=== PATIENT | male | born 1940 | race Caucasian/White ===

== ENCOUNTER 2017-06-06 09:57 | Emergency (ER) | payer MEDICARE ==
[2017-06-06 10:05] VITALS: BMI 25.6
[2017-06-06 10:06] VITALS: TEMP 98.1; O2SAT 98
[2017-06-06] MEDS ORDERED: Sodium Chloride 0.9% 500 ML IV STA ×2 (10:31→12:28)
--- NOTE | 2017-06-06 10:36 | ED PDOC ---
Arrival/HPI - General Chief Complaint: Back Pain Time Seen by Provider: 06/06/17 10:14 Historian: Patient - History of Present Illness Narrative History of Present Illness (Text): 06/06/17 10:33 76 yo male come in for evaluation of R>L flank pain for past 4 days. Pt reports , pain is constant, aching, B/L flank area radiating to RUQ and epigastric area. Pain is worse with movement and standing. Pt had 4 episodes of watery diarrhea yesterday. Otherwise, pt denies change in appetite, fever, chills, headache, dizziness, CP, SOB, dyspnea, diaphoresis, palpitation, N/V, hematemesis, melena, hematoschezia, UTI sx, hematuria. Pt admits, had similar pain in past, " when was diagnosed with gallbladder stones and it was removed". At present time, pt is awake, not n any apparent distress. Past Medical History - Provider Review Nursing Documentation Reviewed: Yes - Travel History Have you recently traveled outside [place] w/in the past 3 mons?: No - Patient History Narrative Patient History: HTN, Colon CA s/p resection, BPH, L-spine herniated disc s/p laminectomy, chronic neck pain ( cervilagia), cholecystectomy - Infectious Disease Hx of Infectious Diseases: None - Tetanus Immunization Tetanus Immunization: Unknown - Cardiac Hx Hypertension: Yes - Neurological Hx Paralysis: No - Hematological/Oncological Hx Blood Transfusions: No Hx Blood Transfusion Reaction: No - Musculoskeletal/Rheumatological Hx Musculoskeletal Disorders: Yes - Psychiatric Hx Emotional Abuse: No Hx Physical Abuse: No Hx Substance Use: No - Surgical History Hx Cholecystectomy: Yes Other/Comment: bilat inguinal hernia. colon. lower back surgery - Anesthesia Hx Anesthesia Reactions: No Hx Malignant Hyperthermia: No - Suicidal Assessment Feels Threatened In Home Enviroment: No Family/Social History - Physician Review Nursing Documentation Reviewed: Yes Family/Social History: Other (not significant) Smoking Status: Never Smoked Hx Alcohol Use: No Hx Substance Use: No Hx Substance Use Treatment: No Allergies/Home Meds Allergies/Adverse Reactions: Allergies No Known Allergies Allergy (Verified 06/06/17 10:20) Home Medications: Home Meds Medication Instructions Recorded Confirmed Amlodipine Besylate/Benazepr 1 cap PO QAM 08/28/12 06/06/17 [Lotrel 10 mg-20 mg] Finasteride 5 mg PO DAILY 02/25/15 06/06/17 Melatonin [Melatonin] 5 mg PO HS 06/06/17 06/06/17 Tamsulosin [Flomax] 0.4 mg PO DAILY 06/06/17 06/06/17 Tizanidine HCl [Zanaflex] 4 mg PO HS 06/06/17 06/06/17 Review of Systems - Physician Review All systems were reviewed & negative as marked: Yes - Review of Systems Constitutional: Normal Eyes: Normal ENT: Normal Respiratory: Normal. absent: SOB, Cough Cardiovascular: Normal. absent: Chest Pain, Palpitations, Orthopnea Gastrointestinal: Diarrhea. absent: Vomiting, Appetite Changes, Hematochezia, Hematemesis, Food Intolerance Genitourinary Male: Normal. absent: Dysuria, Frequency Musculoskeletal: Back Pain Skin: Normal. absent: Rash Neurological: Normal. absent: Dizziness, Focal Weakness Endocrine: Normal Hemo/Lymphatic: Normal Psychiatric: Normal Physical Exam Vital Signs Reviewed: Yes Vital Signs Temp Pulse Resp BP Pulse Ox 06/06/17 12:48 74 18 121/78 98 06/06/17 11:55 79 18 118/75 98 06/06/17 09:58 98.1 F 80 20 120/74 98 Temperature: Afebrile Blood Pressure: Normal Pulse: Regular Respiratory Rate: Normal Appearance: Positive for: Well-Appearing, Non-Toxic, Comfortable Pain Distress: Mild Mental Status: Positive for: Alert and Oriented X 3 - Systems Exam Head: Present: Normocephalic Conjunctiva: Present: Normal Mouth: Present: Moist Mucous Membranes. No: Drooling Pharnyx: No: ERYTHEMA, EXUDATE, TONSILS ENLARGED Neck: Present: Normal Range of Motion, Trachea Midline, Other (Supple, no carotid bruit). No: JVD Respiratory/Chest: Present: Clear to Auscultation, Good Air Exchange. No: Respiratory Distress, Accessory Muscle Use, Wheezes, Decreased Breath Sounds, Rales Cardiovascular: Present: Regular Rate and Rhythm, Normal S1, S2. No: Murmurs Abdomen: Present: Tenderness (mild RUQ and epigastric), Normal Bowel Sounds, Other (well healed vertical scar just above umbilicus). No: Distention, Peritoneal Signs, Rebound, Guarding, McBurney's Point Tender, Hernias Back: Present: Other (mild R>L flank tenderness). No: CVA Tenderness, Midline Tenderness Upper Extremity: Present: Normal Inspection. No: Cyanosis, Edema Lower Extremity: Present: Normal ROM. No: Edema, CALF TENDERNESS, Swelling, Deformity Neurological: Present: GCS=15, Speech Normal, Motor Func Grossly Intact, Normal Sensory Function, Norm Deep Tendon Reflexes Skin: Present: Warm, Dry, Normal Color. No: Rashes Psychiatric: Present: Alert, Oriented x 3, Normal Insight, Normal Concentration Medical Decision Making ED Course and Treatment: 06/06/17 13:02 Pt was OBS in ED for 3 hours and reports moderate improvement in sx. On re-evaluation, pt is afebrile, hemodynamiclay stable. non-toxic. TOlerate Po well in ED. ENT: jamal cute finidngs Neck: Supple, no JVD, no carotid bruits Lungs: CTA B/L, BS equal B/L> CVS: (+)S1S2, reg. Abd: benign, (-) guarding, (-) rebound, (-) localized tenderness. Back: (-) CVA tenderness. No peripheral edema. Case discussed with ED attending , diagnostics, imaging results review, no further testing recommend. Discharge with outpt F/u recommend at this time. results were review and discussed with pt. Pt has clinical findings c/w B/l R>L flank tenderness, UTI . Pt advised and ref. to f/u with PMD, urology in 1-2 days for re-evaluation. Return t o ED if any worsening or new changes. - Lab Interpretations Lab Results: 06/06/17 10:34 06/06/17 10:34 Lab Results 06/06/17 10:34: Sodium 139, Potassium 4.1, Chloride 106, Carbon Dioxide 24, Anion Gap 13, BUN 16, Creatinine 1.1, Est GFR ( Amer) > 60, Est GFR (Non- Af Amer) > 60, Random Glucose 112 H, Calcium 8.9, Total Bilirubin 0.5, AST 21, ALT 20, Alkaline Phosphatase 54, Total Protein 6.9, Albumin 3.7, Globulin 3.2, Albumin/Globulin Ratio 1.2 06/06/17 10:34: Urine Color Yellow, Urine Appearance Clear, Urine pH 6.0, Ur Specific [place] 1.025, Urine Protein Negative, Urine Glucose (UA) Negative, Urine Ketones Negative, Urine Blood Negative, Urine Nitrate Negative, Urine Bilirubin Negative, Urine Urobilinogen 0.2, Ur Leukocyte Esterase Small H, Urine RBC Negative, Urine WBC 5 - 10, Ur Epithelial Cells 0 - 2, Urine Bacteria Trace 06/06/17 10:34: WBC 5.6 D, RBC 4.56, Hgb 15.1, Hct 44.6, MCV 97.8, MCH 33.1, MCHC 33.9, RDW 12.3, Plt Count 163, MPV 9.8, Gran % 53.1, Lymph % (Auto) 30.0, [place] % (Auto) 10.6 H, Eos % (Auto) 4.9, Baso % (Auto) 1.4, Gran # 2.95, Lymph # 1.7, [place]ley # 0.6, Eos # 0.3, Baso # 0.08 - RAD Interpretation Radiology Orders: 06/06/17 10:31 ABD & PELVIS W/O PO OR IV CONT [CT] Stat Accession No. : [id number] Patient Name / ID : LACEY ARRIAZA / [id number] Exam Date : 06/06/2017 11:09:29 ( Approved ) Study Comment : Sex / Age : M / 76Y Creator : Van Contreras MD Dictator : Van Contreras MD Braille Typist : Digital Imaging Technician : Van Contreras MD Approver2 : Report Date : 06/06/2017 11:51:40 My Comment : PROCEDURE: CT Abdomen and Pelvis without intravenous contrast HISTORY: R>L flank pain COMPARISON: 01/11/2017 TECHNIQUE: Without contrast.. Contrast Dose: Radiation dose: Total exam DLP = 402 mGy-cm. This CT exam was performed using one or more of the following dose reduction techniques: Automated exposure control, adjustment of the mA and/or kV according to patient size, and/or use of iterative reconstruction technique. FINDINGS: LOWER THORAX: Unremarkable. LIVER: Unremarkable. No gross lesion or ductal dilatation. GALLBLADDER AND BILE DUCTS: Gallbladder removed PANCREAS: Unremarkable. No gross lesion or ductal dilatation. SPLEEN: Unremarkable. ADRENALS: Unremarkable. No mass. KIDNEYS AND URETERS: Simple cysts are seen in the left kidney. There is no evidence of hydronephrosis. There are no renal or ureteral stones identified. VASCULATURE: Unremarkable. No aortic aneurysm. BOWEL: Unremarkable. No obstruction. No gross mural thickening. APPENDIX: Unremarkable. Normal appendix. PERITONEUM: Unremarkable. No free fluid. No free air. LYMPH NODES: Unremarkable. No enlarged lymph nodes. BLADDER: Unremarkable. REPRODUCTIVE: There is mild enlargement of the prostate. Calcifications are seen within the prostate BONES: No acute fracture. OTHER FINDINGS: None. IMPRESSION: No evidence of renal or ureteral stone - Medication Orders Current Medication Orders: Discontinued Medications Famotidine (Pepcid) 20 mg IVP STAT STA Stop: 06/06/17 10:33 Last Admin: 06/06/17 10:44 Dose: 20 mg Sodium Chloride (Sodium Chloride 0.9%) 500 mls @ 1,000 mls/hr IV .Q30M STA Stop: 06/06/17 11:00 Last Admin: 06/06/17 10:41 Dose: 1,000 mls/hr Ceftriaxone Sodium (Rocephin 1 Gram Ivpb) 1 gm in 100 mls @ 200 mls/hr IVPB STAT STA PRN Reason: Protocol Stop: 06/06/17 12:56 Last Admin: 06/06/17 12:35 Dose: 200 mls/hr Sodium Chloride (Sodium Chloride 0.9%) 500 mls @ 999 mls/hr IV .Q31M STA Stop: 06/06/17 12:58 Last Admin: 06/06/17 12:29 Dose: 999 mls/hr Ketorolac Tromethamine (Toradol) 30 mg IVP STAT STA Stop: 06/06/17 10:32 Last Admin: 06/06/17 10:43 Dose: 30 mg Oxycodone/Acetaminophen (Percocet 5/325 Mg Tab) 1 tab PO STAT STA Stop: 06/06/17 12:43 Last Admin: 06/06/17 12:50 Dose: 1 tab Disposition/Present on Arrival - Present on Arrival Any Indicators Present on Arrival: No History of DVT/PE: No History of Uncontrolled Diabetes: No Urinary Catheter: No History of Decub. Ulcer: No History Surgical Site Infection Following: None - Disposition Have Diagnosis and Disposition been Completed?: Yes Diagnosis: Flank pain, UTI (urinary tract infection) Disposition: HOME/ ROUTINE Disposition Time: 13:42 Patient Plan: Discharge Condition: STABLE Discharge Instructions (ExitCare): Flank Pain (ED), Urinary Tract Infection in Men (ED) Print Language: WELSH Additional Instructions: ENCOURAGE FLUIDS TAKE MEDICATION PRESCRIBED FOLLOW UP WITH PMD IN 1-2 DAYS FOR RE-EVALUATION. RETURN TO ED IF ANY WORSENING OR NEW CHANGES. Prescriptions: Cefpodoxime [Vantin] 400 mg PO BID #28 tab Methocarbamol [Robaxin] 500 mg PO TID #20 tab traMADol [Ultram] 50 mg PO TID #7 tab Referrals: Narendra Alva MD [Primary Care Provider] - Follow up with primary
[2017-06-06 10:47] LABS: BASO # 0.08 K/mm3 (0.0-2.0); BASO % 1.4 % (0.0-3.0); EOS # 0.3 (0.0-0.7); EOS % 4.9 % (1.5-5.0); GRAN # 2.95 (1.4-6.5); GRAN % 53.1 % (50.0-68.0); HEMOGLOBIN 15.1 gm/dL (14.0-18.0); LYMPH # 1.7 (1.2-3.4); MEAN CELL VOLUME 97.8 fL (80.0-105.0); MEAN CORPUSCULAR HEMOGLOBIN 33.1 pg (25.0-35.0); MEAN CORPUSCULAR HGB CONC 33.9 g/dl (31.0-37.0); MEAN PLATELET VOLUME 9.8 fl (7.0-11.0); MONO # 0.6 (0.1-0.6); MONO % 10.6 % (1.0-6.0); PLATELET COUNT 163 10^3/uL (120.0-450.0); RBC 4.56 10^6/uL (3.5-6.1); RED CELL DISTRIBUTION WIDTH 12.3 % (11.5-14.5); URINE BILIRUBIN NEGATIVE (NEGATIVE); URINE BLOOD NEGATIVE (NEGATIVE); URINE GLUCOSE (UA) NEGATIVE (NEGATIVE); URINE LEUKOCYTE ESTERASE SMALL Leu/uL (NEGATIVE); URINE NITRATE NEGATIVE (NEGATIVE); URINE PROTEIN NEGATIVE mg/dL (<30 mg/dL); URINE UROBILINOGEN 0.2 E.U./dL (<1 E.U./dL); WHITE BLOOD COUNT 5.6 10^3/ul (4.5-11.0)
[2017-06-06 10:49] LABS: URINE APPEARANCE CLEAR (CLEAR); URINE COLOR YELLOW (YELLOW)
[2017-06-06 10:53] LABS: URINE BACTERIA TRACE (NEG); URINE EPITHELIAL CELLS 0 - 2 /hpf (0-5); URINE RBC NEGATIVE /hpf (0-2)
[2017-06-06 10:57] LABS: ALB/GLOB RATIO 1.2 (1.1-1.8); ALBUMIN 3.7 g/dL (3.0-4.8); ALT/SGPT 20 U/L (7-56); AST/SGOT 21 U/L (15-59); BLOOD UREA NITROGEN 16 mg/dL (7-21); CALCIUM 8.9 mg/dL (8.4-10.5); GFR AFRICAN-AMERICAN > 60; GFR NON-AFRICAN AMERICAN > 60
--- NOTE | 2017-06-06 11:53 | CT ---
PROCEDURE: CT Abdomen and Pelvis without intravenous contrast HISTORY: R>L flank pain COMPARISON: 01/11/2017 TECHNIQUE: Without contrast.. Contrast Dose: Radiation dose: Total exam DLP = 402 mGy-cm. This CT exam was performed using one or more of the following dose reduction techniques: Automated exposure control, adjustment of the mA and/or kV according to patient size, and/or use of iterative reconstruction technique. FINDINGS: LOWER THORAX: Unremarkable. LIVER: Unremarkable. No gross lesion or ductal dilatation. GALLBLADDER AND BILE DUCTS: Gallbladder removed PANCREAS: Unremarkable. No gross lesion or ductal dilatation. SPLEEN: Unremarkable. ADRENALS: Unremarkable. No mass. KIDNEYS AND URETERS: Simple cysts are seen in the left kidney. There is no evidence of hydronephrosis. There are no renal or ureteral stones identified. VASCULATURE: Unremarkable. No aortic aneurysm. BOWEL: Unremarkable. No obstruction. No gross mural thickening. APPENDIX: Unremarkable. Normal appendix. PERITONEUM: Unremarkable. No free fluid. No free air. LYMPH NODES: Unremarkable. No enlarged lymph nodes. BLADDER: Unremarkable. REPRODUCTIVE: There is mild enlargement of the prostate. Calcifications are seen within the prostate BONES: No acute fracture. OTHER FINDINGS: None. IMPRESSION: No evidence of renal or ureteral stone
[2017-06-06 11:55] VITALS: RESP 18
[2017-06-06] MEDS ORDERED: cefTRIAXone 1 gm 1 GM/100 ML BAG IVPB STA (12:27)
[2017-06-06] MEDS ORDERED: Oxycodone/Acetaminophen 5/325 mg Tab PO STA (12:42)
[2017-06-06 14:02] VITALS: BP 124/79; PULSE 69
== END 2017-06-06 14:03 | disposition home or self-care (01) ==
LOC: ED 09:57
DX: N39.0 Urinary tract infection, site not specified (principal); R10.9 Unspecified abdominal pain; I10 Essential (primary) hypertension; N40.0 Benign prostatic hyperplasia without lower urinary tract symptoms; Z90.49 Acquired absence of other specified parts of digestive tract
CPT/HCPCS: 74176; 80053; 81001; 85025; 87086; 96374; 96375; 99284; J0696; J1885; J7040

== ENCOUNTER 2017-09-05 10:25 | Day surgery (SDC) | payer MEDICARE ==
[2017-08-30 10:15] VITALS: BMI 25.0
[2017-09-05] MEDS ORDERED: Propofol 10 mg/ml Inj (20 ML) ONE (13:13)
[2017-09-05] MEDS ORDERED: Sodium Chloride 0.9% 1,000 ML IV SCH (13:15)
[2017-09-05] MEDS ORDERED: Simethicone 40 mg/0.6 ml Liquid (30 ml) ONE (13:20)
[2017-09-05 14:56] VITALS: BP 113/73; PULSE 60; RESP 18; TEMP 97.7; O2SAT 99
== END 2017-09-05 15:20 | disposition home or self-care (01) ==
LOC: ENDO 10:25
PROVIDERS: ATTEND Internal Medicine Gastroenterology
DX: K29.50 Unspecified chronic gastritis without bleeding (principal); R19.4 Change in bowel habit; K57.30 Diverticulosis of large intestine without perforation or abscess without bleeding; K64.8 Other hemorrhoids; K22.8 Other specified diseases of esophagus; D13.0 Benign neoplasm of esophagus
CPT/HCPCS: 43239; 45380; 88305; 88312; 88342; J2001; J2704; J3010; J7040 ×2

== ENCOUNTER 2018-10-15 07:22 | Day surgery (SDC) | payer MEDICARE ==
[2018-10-04 11:19] VITALS: BMI 25.6
[2018-10-15] MEDS ORDERED: Propofol 10 mg/ml Inj (20 ML) ONE ×2 (08:49→09:46)
[2018-10-15] MEDS ORDERED: Lidocaine 1% Inj (20ml) ONE (08:50)
[2018-10-15] MEDS ORDERED: Sodium Chloride 0.9% 1,000 ML IV SCH (10:15)
[2018-10-15 11:05] VITALS: BP 122/84; PULSE 60; RESP 18; TEMP 97.5; O2SAT 99
== END 2018-10-15 11:25 | disposition home or self-care (01) ==
LOC: ENDO 07:22
PROVIDERS: ATTEND Internal Medicine Gastroenterology
DX: K21.0 Gastro-esophageal reflux disease with esophagitis (principal); K29.50 Unspecified chronic gastritis without bleeding; Z85.038 Personal history of other malignant neoplasm of large intestine
CPT/HCPCS: 43239; 88305; 88312; 88342; J2704; J7030; J7040

== ENCOUNTER 2019-01-28 08:32 | Outpatient (CLI) | payer MEDICARE | END 2019-01-28 08:33 | disposition home or self-care (01) | LOC: RAD 08:32 | DX: R10.9 Unspecified abdominal pain (principal) ==